=== PATIENT | male | born 1935 | race Two or more races ===

== ENCOUNTER 2020-07-30 09:12 | Outpatient (CLI) | payer OTHER ==
[~2020-07-30 09:12] MED LIST: NORVASC5 MG PO
== END 2020-07-30 10:00 | disposition home or self-care (01) ==
LOC: OFIC 805 09:12
PROVIDERS: ATTEND Otolaryngology
DX: H60.8X1 Other otitis externa, right ear (principal); H92.01 Otalgia, right ear; H91.8X1 Other specified hearing loss, right ear

== ENCOUNTER 2020-08-05 11:19 | Outpatient (CLI) | payer OTHER | END 2020-08-05 12:30 | disposition home or self-care (01) | LOC: OFIC 805 11:19 | PROVIDERS: ATTEND Otolaryngology | DX: H60.8X1 Other otitis externa, right ear (principal); H92.01 Otalgia, right ear; H61.21 Impacted cerumen, right ear; H90.41 Sensorineural hearing loss, unilateral, right ear, with unrestricted hearing on the contralateral side ==

== ENCOUNTER 2020-08-05 12:25 | Outpatient (CLI) | payer OTHER | END 2020-08-05 12:31 | disposition home or self-care (01) | LOC: TOM 12:25 | PROVIDERS: ATTEND Otolaryngology | DX: H60.21 Malignant otitis externa, right ear (principal) ==

== ENCOUNTER 2020-08-07 08:52 | Outpatient (CLI) | payer OTHER | END 2020-08-07 09:00 | disposition home or self-care (01) | LOC: OFIC 805 08:52 | PROVIDERS: ATTEND Otolaryngology | DX: H92.01 Otalgia, right ear (principal); H60.8X1 Other otitis externa, right ear; H61.21 Impacted cerumen, right ear; H90.41 Sensorineural hearing loss, unilateral, right ear, with unrestricted hearing on the contralateral side ==

== ENCOUNTER 2020-08-08 08:10 | Outpatient (CLI) | payer OTHER | END 2020-08-08 10:00 | disposition home or self-care (01) | LOC: OFIC 805 08:10 | PROVIDERS: ATTEND Otolaryngology Otology & Neurotology | DX: H60.8X1 Other otitis externa, right ear (principal); H92.01 Otalgia, right ear; H91.8X1 Other specified hearing loss, right ear ==

== ENCOUNTER 2020-08-13 08:22 | Outpatient (CLI) | payer OTHER | END 2020-08-13 10:00 | disposition home or self-care (01) | LOC: OFIC 805 08:22 | PROVIDERS: ATTEND Otolaryngology Otology & Neurotology | DX: H60.8X1 Other otitis externa, right ear (principal); H92.01 Otalgia, right ear; H91.8X1 Other specified hearing loss, right ear ==

== ENCOUNTER → 2020-08-20 | Outpatient (CLI) | payer OTHER | END | disposition home or self-care (01) | LOC: OFIC 805 08:30 | PROVIDERS: ATTEND Otolaryngology | DX: H60.8X1 Other otitis externa, right ear (principal); H92.01 Otalgia, right ear; H61.21 Impacted cerumen, right ear; H90.41 Sensorineural hearing loss, unilateral, right ear, with unrestricted hearing on the contralateral side ==

== ENCOUNTER → 2020-09-09 | Outpatient (CLI) | payer OTHER | END | disposition home or self-care (01) | LOC: OFIC 805 08:50 | PROVIDERS: ATTEND Otolaryngology | DX: H60.8X1 Other otitis externa, right ear (principal); H61.22 Impacted cerumen, left ear; H90.41 Sensorineural hearing loss, unilateral, right ear, with unrestricted hearing on the contralateral side ==